=== PATIENT | female | born 2000 | race Two or more races ===

== ENCOUNTER → 2023-09-12 09:46 | Outpatient (CLI) | payer OTHER | END | disposition home or self-care (01) | LOC: PRENATAL 09:46 | PROVIDERS: ATTEND Obstetrics & Gynecology Maternal & Fetal Medicine | DX: O36.80X0 Pregnancy with inconclusive fetal viability, not applicable or unspecified (principal); Z36.82 Encounter for antenatal screening for nuchal translucency; Z3A.14 14 weeks gestation of pregnancy ==

== ENCOUNTER 2023-10-14 13:33 | Outpatient (CLI) | payer OTHER | END 2023-10-14 13:34 | disposition home or self-care (01) | LOC: PRENATAL 13:33 | PROVIDERS: ATTEND Obstetrics & Gynecology Maternal & Fetal Medicine | DX: O36.80X0 Pregnancy with inconclusive fetal viability, not applicable or unspecified (principal); Z36.82 Encounter for antenatal screening for nuchal translucency; Z36.9 Encounter for antenatal screening, unspecified; Z3A.18 18 weeks gestation of pregnancy ==

== ENCOUNTER 2023-12-30 22:18 | Outpatient (CLI) | payer OTHER ==
[~2023-12-30 22:18] MED LIST: FLUCONAZOLE150 MG PO; PRENA1 TRUE CO1 EACH
[2023-12-30] MEDS ORDERED: IRON240 MG (22:19)
[2023-12-30] MEDS ORDERED: RINGERS SOLUTION,LACTATED 1,000 ML IV SCH (22:30)
[2023-12-30 23:10] LABS: PH,URINE 7.5 (5.0-8.0); URINE APPEARANCE Clear; URINE BILIRRUBIN Negative (NEGATIVE); URINE BLOOD Negative; URINE COLOR Yellow; URINE GLUCOSE Negative (NEGATIVE); URINE LEUKOCYTE Trace; URINE NITRATE Negative; URINE PROTEIN Negative (NEGATIVE); URINE UROBILINOGEN 0.2 E.U./dl
[2023-12-30 23:11] LABS: HEMATOCRIT 27.6 % (36.0-45.00); HEMOGLOBIN 9.5 g/dL (12.0-15.00); MEAN CELL VOLUME 84.1 fL (80.00-100.00); MEAN CORPUSCULAR HEMOGLOBIN 28.9 pg (27.00-32.0); MEAN CORPUSCULAR HGB CONC 34.3 g/dl (32.0-36.0); PLATELET COUNT 291 K/uL (150-450); RED BLOOD COUNT 3.29 M/uL (4.00-6.00); RED CELL DISTRIBUTION WIDTH 13.3 % (11.5-14.5)
[2023-12-30 23:13] LABS: URINE BACTERIA 917.2 uL (0.0-1933); URINE EPITHELIAL CELLS 18.6 uL (0.0-38.8)
[2023-12-30 23:40] LABS: URINE RBC 0.7 uL (0.0-20.8)
[2023-12-31] MEDS ORDERED: FERROUS SULFATE 325 MG TABLET.EC PO SCH (09:00)
[2023-12-31] MEDS ORDERED: PNV,CALCIUM 72/IRON/FOLIC ACID 1 TAB TABLET PO SCH (09:00)
== END 2023-12-31 11:08 | disposition home or self-care (01) ==
LOC: OBS/DEL 22:18
PROVIDERS: Obstetrics & Gynecology; ATTEND Obstetrics & Gynecology
DX: O26.893 Other specified pregnancy related conditions, third trimester (principal); R10.2 Pelvic and perineal pain; Z3A.30 30 weeks gestation of pregnancy

== ENCOUNTER → 2024-01-20 13:16 | Outpatient (CLI) | payer OTHER ==
[~2024-01-20 13:16] MED LIST changes: +IRON240 MG
== END | disposition home or self-care (01) ==
LOC: PRENATAL 13:16
PROVIDERS: ATTEND Obstetrics & Gynecology Maternal & Fetal Medicine
DX: O26.843 Uterine size-date discrepancy, third trimester (principal); O36.8130 Decreased fetal movements, third trimester, not applicable or unspecified; O99.013 Anemia complicating pregnancy, third trimester; Z3A.32 32 weeks gestation of pregnancy

== ENCOUNTER 2024-03-04 01:55 | Outpatient (CLI) | payer OTHER ==
[2024-03-04 00:38] VITALS: BP 114/73
[2024-03-04 00:46] VITALS: BP 114/73
[2024-03-04] MEDS ORDERED: AMPICILLIN SODIUM 2,000 MG VIAL IV ONE (02:00)
[2024-03-04] MEDS ORDERED: PROBIOTIC1 EAC4 PO (02:03)
[2024-03-04] MEDS ORDERED: RINGERS SOLUTION,LACTATED 1,000 ML IV SCH (02:15)
[2024-03-04] MEDS ORDERED: MORPHINE SULFATE 4 MG/ML VIAL IV ONE (02:15)
[2024-03-04 02:43] LABS: PH,URINE 6.5 (5.0-8.0); URINE APPEARANCE Clear; URINE BILIRRUBIN Negative (NEGATIVE); URINE BLOOD Negative; URINE COLOR Yellow; URINE KETONE Negative (NEGATIVE); URINE LEUKOCYTE Trace; URINE NITRATE Negative; URINE PROTEIN Negative (NEGATIVE); URINE UROBILINOGEN 0.2 E.U./dl
[2024-03-04 02:46] LABS: URINE BACTERIA 177.4 uL (0.0-1933); URINE EPITHELIAL CELLS 12.9 uL (0.0-38.8)
[2024-03-04 02:47] LABS: HEMATOCRIT 28.6 % (36.0-45.00); HEMOGLOBIN 9.6 g/dL (12.0-15.00); MEAN CELL VOLUME 77.5 fL (80.00-100.00); MEAN CORPUSCULAR HEMOGLOBIN 25.9 pg (27.00-32.0); MEAN CORPUSCULAR HGB CONC 33.5 g/dl (32.0-36.0); PLATELET COUNT 314 K/uL (150-450); RED BLOOD COUNT 3.69 M/uL (4.00-6.00); RED CELL DISTRIBUTION WIDTH 17.1 % (11.5-14.5)
[2024-03-04 02:48] LABS: URINE GLUCOSE 500 MG/DL (NEGATIVE); URINE RBC 0.6 uL (0.0-20.8)
[2024-03-04 04:01] VITALS: BP 98/61
[2024-03-04] MEDS ORDERED: AMPICILLIN SODIUM 1,000 MG VIAL IV SCH (05:00)
[2024-03-04] MEDS ORDERED: AMPICILLIN SODIUM 1,000 MG VIAL ONE ×2 (05:04→08:39)
[2024-03-04] MEDS ORDERED: SOD FERRIC GLUC COMPLX/SUCROSE 62.5 MG/5 ML AMPUL IV SCH (06:14)
[2024-03-04] MEDS ORDERED: SOD FERRIC GLUC COMPLX/SUCROSE 62.5 MG/5 ML AMPUL IV ONE (06:32)
[2024-03-04 07:33] VITALS: BP 114/63
[2024-03-04 11:22] VITALS: BP 110/73
[2024-03-04 14:38] VITALS: BP 110/73
== END 2024-03-04 14:38 | disposition home or self-care (01) ==
LOC: OBS/DEL 01:55
PROVIDERS: Obstetrics & Gynecology; ATTEND Obstetrics & Gynecology
DX: O47.1 False labor at or after 37 completed weeks of gestation (principal); Z3A.39 39 weeks gestation of pregnancy

== ENCOUNTER 2024-03-06 06:17 | Inpatient (IN) | payer OTHER ==
[~2024-03-06] VITALS: Ht 162.6 cm; Wt 3.6 kg
[~2024-03-06 06:17] MED LIST changes: +PROBIOTIC1 EAC4 PO
[2024-03-06] MEDS ORDERED: AMPICILLIN SODIUM 2,000 MG VIAL ONE (06:30)
[2024-03-06 06:36] VITALS: BP 133/77
[2024-03-06] MEDS ORDERED: RINGERS SOLUTION,LACTATED 1,000 ML IV SCH (07:15)
[2024-03-06] MEDS ORDERED: AMPICILLIN SODIUM 2,000 MG VIAL IV NR (07:15)
[2024-03-06 07:27] VITALS: BP 119/74
[2024-03-06 07:27] LABS: HEMATOCRIT 31.1 % (36.0-45.00); HEMOGLOBIN 10.2 g/dL (12.0-15.00); MEAN CELL VOLUME 78.4 fL (80.00-100.00); MEAN CORPUSCULAR HEMOGLOBIN 25.7 pg (27.00-32.0); MEAN CORPUSCULAR HGB CONC 32.8 g/dl (32.0-36.0); PLATELET COUNT 286 K/uL (150-450); RED BLOOD COUNT 3.97 M/uL (4.00-6.00); RED CELL DISTRIBUTION WIDTH 17.1 % (11.5-14.5)
[2024-03-06] MEDS ORDERED: MISOPROSTOL 25 MCG/4 ML GEL.W.APPL VAG ONE ×2 (07:45→16:45)
[2024-03-06 07:51] LABS: PH,URINE 6.5 (5.0-8.0); URINE APPEARANCE Clear; URINE BILIRRUBIN Negative (NEGATIVE); URINE BLOOD Negative; URINE COLOR Yellow; URINE GLUCOSE Negative (NEGATIVE); URINE KETONE Negative (NEGATIVE); URINE LEUKOCYTE Small; URINE NITRATE Negative; URINE PROTEIN Negative (NEGATIVE); URINE UROBILINOGEN 0.2 E.U./dl
[2024-03-06 07:55] LABS: URINE BACTERIA 1162.8 uL (0.0-1933); URINE EPITHELIAL CELLS 63.9 uL (0.0-38.8); URINE WBC 63.9 uL (0.0-23.2)
[2024-03-06 08:08] LABS: URINE RBC 0.4 uL (0.0-20.8)
[2024-03-06 08:11] LABS: INR < 0.93; PARTIAL THROMBOPLASTIN TIME 27.1 SECONDS (22.0-34.0); PROTHROMBIN TIME 10.1 SECONDS (9.0-11.5)
[2024-03-06 08:16] LABS: ALBUMIN 2.6 gm/dL (3.4-5.0); BILIRUBIN TOTAL 0.18 mg/dL (0.3-1.2); CALCIUM 9.2 mg/dL (8.5-10.1); CREATININE SERUM 0.48 mg/dL (0.55-1.02); GFR 161.72; GLOBULINA 3.3 G/DL (2.4-3.5); POTASSIUM 3.98 mEq/L (3.5-5.1); TOTAL PROTEIN 5.9 gm/dL (6.4-8.2)
[2024-03-06 11:32] VITALS: BP 111/62
[2024-03-06] MEDS ORDERED: AMPICILLIN SODIUM 1,000 MG VIAL IV SCH (12:00)
[2024-03-06] MEDS ORDERED: MISOPROSTOL 25 MCG TABLET VAG NR (12:34)
[2024-03-06] MEDS ORDERED: MISOPROSTOL 25 MCG/4 ML GEL.W.APPL ONE ×2 (12:37→16:42)
[2024-03-06] MEDS ORDERED: MISOPROSTOL 25 MCG/4 ML GEL.W.APPL VAG NR (13:00)
[2024-03-06 15:31] VITALS: BP 127/70
[2024-03-06 19:23] VITALS: BP 111/67
[2024-03-07] VITALS: BP 117/73
[2024-03-07] MEDS ORDERED: MORPHINE SULFATE 4 MG/ML VIAL IV ONE ×3 (00:45→12:10)
[2024-03-07 04:27] VITALS: BP 128/64
[2024-03-07 07:31] VITALS: BP 119/69
[2024-03-07] MEDS ORDERED: OXYTOCIN 10 UNITS/ML VIAL ONE (08:35)
[2024-03-07] MEDS ORDERED: ERYTHROMYCIN BASE OPHT 1GM EACH TUBE OP ONE ×2 (08:35→11:30)
[2024-03-07] MEDS ORDERED: CHLORHEXIDINE GLUCONATE 120 ML BOTTLE TOP ONE ×2 (08:35→11:30)
[2024-03-07] MEDS ORDERED: OXYTOCIN 20 UNITS/1000ML RL PIGGYBAG IV ONE (08:35)
[2024-03-07] MEDS ORDERED: MEPERIDINE HCL/PF 50 MG/ML VIAL IM PRN (10:00)
[2024-03-07] MEDS ORDERED: PROMETHAZINE HCL 50 MG/ML AMPUL IM PRN (10:00)
[2024-03-07] MEDS ORDERED: AMPICILLIN SODIUM 1,000 MG VIAL ONE (11:13)
[2024-03-07] MEDS ORDERED: OXYTOCIN 10 UNITS/ML VIAL IV ONE (11:30)
[2024-03-07] MEDS ORDERED: MEPERIDINE HCL 50 MG/ML AMPUL IM ONE (12:40)
[2024-03-07 14:02] VITALS: BP 115/75
[2024-03-07 18:17] VITALS: BP 117/76
[2024-03-07 18:21] LABS: HEMATOCRIT 30.6 % (36.0-45.00); HEMOGLOBIN 9.8 g/dL (12.0-15.00); MEAN CELL VOLUME 79.2 fL (80.00-100.00); MEAN CORPUSCULAR HEMOGLOBIN 25.3 pg (27.00-32.0); PLATELET COUNT 258 K/uL (150-450); RED BLOOD COUNT 3.86 M/uL (4.00-6.00); RED CELL DISTRIBUTION WIDTH 17.1 % (11.5-14.5)
[2024-03-08] VITALS: BP 117/80
[2024-03-08 04:30] VITALS: BP 121/78
[2024-03-08] MEDS ORDERED: OxyCODONE HCL/APAP UD (PERCOCET) PO PRN (08:00)
[2024-03-08 08:55] VITALS: BP 127/85
[2024-03-08] MEDS ORDERED: DOCUSATE SODIUM 100MG CAP PO SCH (09:00)
[2024-03-08] MEDS ORDERED: PNV,CALCIUM 72/IRON/FOLIC ACID 1 TAB TABLET PO SCH (09:00)
[2024-03-08] MEDS ORDERED: SIMETHICONE 125 MG CAPSULE PO SCH (09:00)
[2024-03-08 16:00] VITALS: BP 112/77
[2024-03-08] MEDS ORDERED: IBUprofen 600 MG TABLET PO SCH (18:05)
[2024-03-08 20:46] VITALS: BP 106/68
[2024-03-09] VITALS: BP 120/75
[2024-03-09 07:51] VITALS: BP 100/62
[2024-03-09 18:01] VITALS: BP 112/73
[2024-03-10 01:00] VITALS: BP 107/67
[2024-03-10 07:46] VITALS: BP 93/59
[2024-03-10] MEDS ORDERED: IBUPROFEN800 MG PO (08:57)
== END 2024-03-10 15:55 | disposition home or self-care (01) | DRG 788 ==
LOC: OB/GYN → LDR 06:17 → OB/GYN 14:00 → O/R 03-07 08:53 → OB/GYN 03-07 11:02
PROVIDERS: ADMIT Obstetrics & Gynecology; ATTEND Obstetrics & Gynecology
PROC: 3E0P7VZ Introduction of Hormone into Female Reproductive, Via Natural or Artificial Opening (ICD-10-PCS; 2024-03-06)
PROC: 4A1HXCZ Monitoring of Products of Conception, Cardiac Rate, External Approach (ICD-10-PCS; 2024-03-06)
PROC: 3E033VJ Introduction of Other Hormone into Peripheral Vein, Percutaneous Approach (ICD-10-PCS; 2024-03-07)
PROC: 10D00Z1 Extraction of Products of Conception, Low, Open Approach (ICD-10-PCS; principal; 2024-03-07 08:45)
DX: O33.8 Maternal care for disproportion of other origin (principal); Z3A.40 40 weeks gestation of pregnancy; Z37.0 Single live birth; Z20.822 Contact with and (suspected) exposure to COVID-19